=== PATIENT | male | born 1955 | race African-American/Black ===

== ENCOUNTER 2022-11-18 16:29 | Emergency (ER) | payer MEDICARE, MEDICAID ==
[~2022-11-18] VITALS: Ht 177.8 cm; Wt 80.7 kg
[2022-11-18 16:50] VITALS: BP_SYST 149
--- NOTE | 2022-11-18 17:14 | NUR ---
PT BROUGHT IN BY SELF STATING HE SUDDENLY REALIZED HE WAS BLEEDING FROM HIS TESTICLE. PT STATES HIS PANTS WERE SATURATED WITH BLOOD, PT DOES NOT C/O PAIN PT STATE HE DOES HAVE AN UNUSUAL HEADACHE AND STATES IT RADIATES AROUND FOREHEAD LIKE A SINUS PRESSURE. PT HOOKED UP TO BP MACHINE. ON ASSESSMENT BLEEDING SITE IS SMALL PINHOLE SIZE ON RIGHT TESTICLE NEW GUAZE PLACED. VSS, NAD, EVEN AND UNLABORED RESPIRATIONS WILL CONT TO MONITOR.
--- NOTE | 2022-11-18 17:55 | NUR ---
Dr Cooper evaluating patient at bedside
[2022-11-18] MEDS ORDERED: KETOROLAC TROMETHAMINE 30 MG VIAL IM ONE (18:15)
[2022-11-18 18:35] LABS: BASOPHILS # (AUTO) 0.1 K/uL (0.0-0.2); BASOPHILS % (AUTO) 1.1 % (0.0-2.0); EOSINOPHILS # (AUTO) 0.5 K/uL (0.0-0.4); EOSINOPHILS % (AUTO) 6.7 % (0.0-4.0); HEMATOCRIT 40.7 % (36-54); HEMOGLOBIN 14.1 g/dL (14.0-18.0); LYMPHOCYTES # (AUTO) 1.8 K/uL (1.0-5.5); LYMPHOCYTES % (AUTO) 24.7 % (20.5-51.5); MEAN CORPUSCULAR HEMOGLOBIN 32 pg (27-31); MEAN CORPUSCULAR HGB CONC 35 % (32-36); MEAN CORPUSCULAR VOLUME 91 fL (79.0-98.0); MONOCYTES # (AUTO) 0.5 K/uL (0.0-1.0); NEUTROPHILS # (AUTO) 4.5 K/uL (1.8-7.7); NEUTROPHILS % (AUTO) 60.5 % (40.0-70.0); PLATELET COUNT (AUTO) 181 K/uL (130-430); RED BLOOD CELL COUNT(AUTO) 4.47 MIL/uL (4.2-6.2); RED CELL DISTRIBUTION WIDTH 14.9 % (9.0-15.0); WHITE BLOOD COUNT (AUTO) 7.4 K/uL (4.8-10.8)
[2022-11-18 18:42] LABS: CALCIUM 8.1 mg/dL (8.4-11.0); CREATININE 1.22 mg/dL (0.55-1.30)
[2022-11-18 18:47] LABS: ALBUMIN 3.8 g/dL (3.4-4.8); TOTAL BILIRUBIN 0.3 mg/dL (0.0-1.0)
--- NOTE | 2022-11-18 19:10 | NUR ---
Pt A&Ox4, VSS, respirations even and unlabored, cap refill <3.
[2022-11-18 20:05] LABS: BILIRUBIN,URINE NEGATIVE (NEGATIVE); BLOOD, URINE NEGATIVE (NEGATIVE); CLARITY/URINE CLEAR (CLEAR); COLOR,URINE YELLOW (YELLOW); GLUCOSE,URINE NEGATIVE (NEGATIVE); KETONES,URINE NEGATIVE (NEGATIVE); LEUKOCYTE ESTERASE ,URINE TRACE (NEGATIVE); NITRITE, URINE NEGATIVE (NEGATIVE); PH,URINE 7.5 (5.0-8.0); PROTEIN URINE NEGATIVE (NEGATIVE); UROBILINOGEN,URINE 0.2 (0.2-1.0)
[2022-11-18 20:14] LABS: BACTERIA,URINE RARE /HPF (None Seen); MUCUS,URINE 1+ /LPF (None Seen); RBC,URINE 0-3 /HPF (0-3)
[2022-11-18] MEDS ORDERED: SULFAMETHOXAZOLE/TRIMETHOPR DS 1 TABLET ONE (21:11)
[2022-11-18] MEDS ORDERED: SULFAMETHOXAZOLE/TRIMETHOPR DS 1 TABLET PO ONE (21:15)
[2022-11-18] MEDS ORDERED: SULF1TAB48 PO (21:24)
--- NOTE | 2022-11-18 21:33 | NUR ---
Patient given written and verbal discharge instructions and verbalizes understanding. ER MD discussed with patient the results and treatment provided. Patient in stable condition. ID arm band removed. Rx of Bactrim given. Patient educated on pain management and to follow up with PMD. Pain Scale 2/10 . Opportunity for questions provided and answered. Medication side effect fact sheet provided.
[2022-11-18 21:34] VITALS: BP_SYST 151
== END 2022-11-18 21:34 | disposition home or self-care (01) ==
LOC: SED 16:29
DX: N39.0 Urinary tract infection, site not specified (principal); N50.812 Left testicular pain; Z79.899 Other long term (current) drug therapy
CPT/HCPCS: 36415; 76870-TC; 80053; 81000; 85025; 99284